=== PATIENT | female | born 1960 | race Caucasian/White ===

== ENCOUNTER 2017-08-26 23:04 | Emergency (ER) | payer OTHER ==
[~2017-08-26] VITALS: Ht 165.1 cm; Wt 83.0 kg
[2017-08-26 23:18] VITALS: Ht 165.1 cm; Wt 83.0 kg
[2017-08-27 01:35] VITALS: BP 128/79
== END 2017-08-27 01:35 | disposition home or self-care (01) ==
LOC: ED 23:04
DX: S80.862A Insect bite (nonvenomous), left lower leg, initial encounter (principal); M54.2 Cervicalgia; R07.89 Other chest pain; E03.9 Hypothyroidism, unspecified; W57.XXXA Bitten or stung by nonvenomous insect and other nonvenomous arthropods, initial encounter; Y93.89 Activity, other specified; Y92.89 Other specified places as the place of occurrence of the external cause; Y99.8 Other external cause status
CPT/HCPCS: J7512